=== PATIENT | female | born 1995 | race Caucasian/White ===

== ENCOUNTER 2020-02-05 18:47 | Emergency (ER) | payer OTHER ==
[~2020-02-05] VITALS: Ht 165.1 cm; Wt 74.1 kg
[2020-02-05 18:57] VITALS: BP 122/78
== END 2020-02-05 19:49 | disposition home or self-care (01) ==
LOC: ER 18:48
DX: B34.9 Viral infection, unspecified (principal); R51.9 Headache, unspecified; R06.02 Shortness of breath; Z20.828 Contact with and (suspected) exposure to other viral communicable diseases
CPT/HCPCS: 36415; 99281

== ENCOUNTER 2020-03-21 08:26 | Emergency (ER) | payer OTHER ==
[~2020-03-21] VITALS: Ht 165.1 cm; Wt 77.1 kg
[2020-03-21 08:28] VITALS: BP 121/77
[2020-03-21] MEDS ORDERED: PRED20TA PO (08:59)
[2020-03-21] MEDS ORDERED: methylPREDNISolone sod succ 125mg/2ml vial IM ONE (09:00)
--- NOTE | 2020-03-21 09:50 | NUR ---
Patient seen and assessed by provider.
== END 2020-03-21 09:56 | disposition home or self-care (01) ==
LOC: ER 08:27
DX: L23.7 Allergic contact dermatitis due to plants, except food (principal); Z79.899 Other long term (current) drug therapy
CPT/HCPCS: 96372; 99283; J2930

== ENCOUNTER 2020-05-05 09:10 | Emergency (ER) | payer OTHER ==
[~2020-05-05] VITALS: Ht 165.1 cm; Wt 71.4 kg
[2020-05-05] MEDS ORDERED: BENZ-16 PO (09:54)
== END 2020-05-05 10:14 | disposition home or self-care (01) ==
LOC: ER 09:11
DX: J02.9 Acute pharyngitis, unspecified (principal); Z20.828 Contact with and (suspected) exposure to other viral communicable diseases; Z88.8 Allergy status to other drugs, medicaments and biological substances
CPT/HCPCS: 36415; 99283

== ENCOUNTER 2020-05-29 17:30 | Emergency (ER) | payer OTHER ==
[~2020-05-29] VITALS: Ht 165.1 cm; Wt 73.3 kg
[~2020-05-29 17:30] MED LIST: BENZ-16 PO
[2020-05-29] MEDS ORDERED: orphenadrine citrate 60mg/2ml inj. IM ONE (17:55)
[2020-05-29] MEDS ORDERED: HYDROcodone/acetaminophen 5mg/325mg tablet PO ONE (17:55)
[2020-05-29] MEDS ORDERED: ketorolac trometh inj. 60 MG/2 ML VIAL IM ONE (17:55)
[2020-05-29 18:45] LABS: URINE HCG NEGATIVE (NEG)
[2020-05-29 18:49] LABS: CLARITY,URINE CLEAR (Clear); COLOR,URINE YELLOW (Yellow); GLUCOSE, URINE NEGATIVE (Neg); KETONES,URINE NEGATIVE (Neg); LEUKOCYTE ESTERASE ,URINE NEGATIVE (Neg); NITRITES, URINE NEGATIVE (Neg); OCCULT BLOOD,URINE NEGATIVE (Neg); PH,URINE 6.5 (4.8-8.0); PROTEIN,URINE NEGATIVE (Neg); UROBILINOGEN,URINE 0.2 E.U/dL (0.2-1.0)
[2020-05-29 19:10] LABS: UA COLLECTION TYPE CLN CATCH MIDSTREAM
[2020-05-29] MEDS ORDERED: ORPH100T2 PO (19:12)
[2020-05-29] MEDS ORDERED: NAPR-56 PO (19:12)
[2020-05-29 20:05] VITALS: BP 114/74
== END 2020-05-29 20:08 | disposition home or self-care (01) ==
LOC: ER 17:31
DX: S39.012A Strain of muscle, fascia and tendon of lower back, initial encounter (principal); M62.838 Other muscle spasm; Z79.899 Other long term (current) drug therapy; X58.XXXA Exposure to other specified factors, initial encounter; Y93.89 Activity, other specified; Y92.89 Other specified places as the place of occurrence of the external cause; Y99.8 Other external cause status
CPT/HCPCS: 72100; 81003; 81025; 96372; 99284; J1885; J2360

== ENCOUNTER 2020-12-10 13:42 | Emergency (ER) | payer OTHER ==
[~2020-12-10] VITALS: Ht 165.1 cm; Wt 65.0 kg
[~2020-12-10 13:42] MED LIST changes: -BENZ-16 PO; +ORPH100T2 PO
[2020-12-10 16:09] LABS: CLARITY,URINE SLIGHTLY CLOUDY (Clear); COLOR,URINE STRAW (Yellow); GLUCOSE, URINE NEGATIVE (Neg); KETONES,URINE NEGATIVE (Neg); LEUKOCYTE ESTERASE ,URINE NEGATIVE (Neg); NITRITES, URINE NEGATIVE (Neg); OCCULT BLOOD,URINE NEGATIVE (Neg); PROTEIN,URINE NEGATIVE (Neg)
[2020-12-10 16:12] LABS: URINE HCG NEGATIVE (NEG)
[2020-12-10 16:15] LABS: UA COLLECTION TYPE CLN CATCH MIDSTREAM
[2020-12-10 16:17] LABS: BACTERIA,URINE 1+ /HPF (Neg); RBC,URINE 0-2 /HPF (0-2); SQUAMOUS EPITHELIAL CELL,UR MODERATE /LPF (FEW); WBC,URINE 0-4 /HPF (0-4)
[2020-12-10 16:20] LABS: BASOPHILS % (AUTO) 0.4 % (0-1); EOSINOPHILS # (AUTO) 0.1 X10'3 (0-0.9); EOSINOPHILS % (AUTO) 1.1 % (0-6); HEMOGLOBIN 14.1 g/dl (12.0-16.0); LYMPHOCYTES # (AUTO) 2.6 X10'3 (1.1-4.8); LYMPHOCYTES % (AUTO) 30.2 % (21-51); MEAN CORPUSCULAR HEMOGLOBIN 30.5 PG (27.0-31.0); MEAN CORPUSCULAR HGB CONC 33.6 g/dL (33.0-36.5); MEAN CORPUSCULAR VOLUME 90.7 FL (78-98); MEAN PLATELET VOLUME 8.4 FL (7.4-10.4); MONOCYTES # (AUTO) 0.5 X10'3 (0-0.9); MONOCYTES % (AUTO) 5.7 % (2-12); NEUTROPHILS # (AUTO) 5.5 X10'3 (1.8-7.7); NEUTROPHILS % (AUTO) 62.6 % (42-75); PLATELET COUNT 346 X10'3 (140-440); RED BLOOD COUNT 4.63 X10'6 (4.20-5.60); RED CELL DISTRIBUTION WIDTH 13.4 % (11.5-14.5); WHITE BLOOD COUNT 8.8 X10'3 (4.5-11.0)
[2020-12-10 16:38] LABS: ALANINE AMINOTRANSFERASE 17 U/L (12-78); ALBUMIN 4.2 G/DL (3.4-5.0); ALBUMIN/GLOBULIN RATIO 1.1 (1.1-1.5); ALKALINE PHOSPHATASE 53 IU/L (46-116); ANION GAP 11 (8-16); ASPARTATE AMINO TRANSFERASE 18 U/L (10-37); BILIRUBIN,TOTAL 0.5 MG/DL (0.1-1.0); BLOOD UREA NITROGEN 16 MG/DL (7-18); BUN/CREATININE RATIO 17.6 (6.6-38.0); CALCIUM 9.1 MG/DL (8.5-10.1); CHLORIDE 106 MMOL/L (99-107); CREATININE 0.91 MG/DL (0.40-0.90); GLUCOSE 98 MG/DL (70-104); LIPASE 170 U/L (73-393); POTASSIUM 4.6 MMOL/L (3.5-5.1); SODIUM 142 MMOL/L (135-145); TOTAL CARBON DIOXIDE 25.2 MMOL/L (24-32); TOTAL PROTEIN 7.9 G/DL (6.4-8.2); eGFR 75 ML/MIN
[2020-12-10 18:53] VITALS: BP 115/71
--- NOTE | 2020-12-10 18:58 | NUR ---
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
== END 2020-12-10 20:46 | disposition home or self-care (01) ==
LOC: ER 13:42
DX: R10.11 Right upper quadrant pain (principal); F17.200 Nicotine dependence, unspecified, uncomplicated; Z88.8 Allergy status to other drugs, medicaments and biological substances; Z79.899 Other long term (current) drug therapy
CPT/HCPCS: 36415; 76700; 80053; 81001; 81025; 83690; 85025; 99284

== ENCOUNTER 2021-02-21 09:40 | Emergency (ER) | payer OTHER ==
[~2021-02-21] VITALS: Ht 167.6 cm; Wt 68.2 kg
[2021-02-21 11:24] VITALS: BP 116/75
== END 2021-02-21 15:09 | disposition home or self-care (01) ==
LOC: ER 09:41
DX: M25.551 Pain in right hip (principal); Z79.899 Other long term (current) drug therapy
CPT/HCPCS: 99282

== ENCOUNTER 2021-02-26 20:04 | Emergency (ER) | payer OTHER ==
[~2021-02-26] VITALS: Ht 165.1 cm; Wt 68.0 kg
[2021-02-26 20:21] VITALS: BP 119/78
[2021-02-26 22:43] LABS: D-DIMER < 0.19 MG/L FEU (0-0.50)
--- NOTE | 2021-02-26 22:59 | NUR ---
PT WAS DISCHARGED BEFORE NURSING ASSESSMENTS DONE
== END 2021-02-26 22:59 | disposition home or self-care (01) ==
LOC: ER 20:06
DX: B34.9 Viral infection, unspecified (principal); Z20.822 Contact with and (suspected) exposure to COVID-19; Z72.89 Other problems related to lifestyle; Z88.8 Allergy status to other drugs, medicaments and biological substances; Z79.899 Other long term (current) drug therapy
CPT/HCPCS: 36415; 71045; 85379; 87635; 93005; 99285; C9803

== ENCOUNTER 2021-05-01 08:18 | Emergency (ER) | payer OTHER ==
[~2021-05-01] VITALS: Ht 167.6 cm; Wt 70.5 kg
[2021-05-01 08:28] VITALS: BP 114/78
--- NOTE | 2021-05-01 08:42 | NUR ---
pt vaccinated with modern[employer] pt vaccinated mar 2020, apr 2020
== END 2021-05-01 08:53 | disposition home or self-care (01) ==
LOC: ER 08:19
DX: U07.1 COVID-19 (principal); J06.9 Acute upper respiratory infection, unspecified; R51.9 Headache, unspecified; R09.89 Other specified symptoms and signs involving the circulatory and respiratory systems; Z72.89 Other problems related to lifestyle; Z79.899 Other long term (current) drug therapy
CPT/HCPCS: 36415; 99283; U0003; U0005